=== PATIENT | female | born 1970 | race Hispanic/Latino ===

== ENCOUNTER 2016-11-12 10:33 | Emergency (ER) | payer OTHER ==
[2016-11-12 10:42] VITALS: BP 125/75
[2016-11-12 11:09] LABS: Bacteria,Urine 1+ /HPF (Negative); Bilirubin,Urine NEG (Negative); Blood,Urine MOD (Negative); Ketones,Urine TR mg/dL (Negative); Leukocyte Esterase,Urine TR (Negative); Mucus,Urine FEW /HPF; Nitrite,Urine NEG (Negative); Protein,Urine <15 mg/dL mg/dL (Negative); Urobilinogen,Urine < 2.0 mg/dL (<2.0)
--- NOTE | 2016-11-12 11:40 | XRay Report ---
CHEST 2 VIEWS INDICATION: Cough, fever. COMPARISON: 04/09/2011. FINDINGS: PA and lateral chest radiographs demonstrate normal cardiomediastinal silhouette. Clear, well-expanded lungs. Mild mid to lower thoracic spine degenerative spurring. CONCLUSION: No acute disease in the chest. Thank you for the opportunity to participate in this patient's care.
--- NOTE | 2016-11-12 12:34 | Emergency Department Report ---
Entered by ELLIOT MACIAS, acting as scribe for MARCOS RIBERA PA. <MARCOS RIBERA - Last Filed: 11/12/16 12:34> ED General Adult HPI - General Chief complaint: Upper Respiratory Infection Stated complaint: FLU SX/POSS UTI Source: patient Mode of arrival: Ambulatory Limitations: No Limitations - History of Present Illness Initial comments: 46 y/o female with no significant PMHx c/o flu-like symptoms and UTI symptoms for 3 days. Associated symptoms include back pain, dysuria, productive cough, suprapubic pain, right flank pain, nausea, vomiting, fever, and chills, but she denies headache, vaginal discharge, dyspareunia, diarrhea, and SOB. Rates right flank pain a 5/10 in severity, which she describes as sharp and aching in quality. Pain worsens with movement and alleviated by nothing. Patient notes these symptoms feels similar to her past UTIs, but worse. LMP 11/04/2016. NKDA. Onset/Timin -: days(s) Location: back (right flank), abdomen (suprapubic) Radiation: non-radiation Severity scale (0 -10): 5 (right flank pain) Quality: burning (urination) Consistency: constant Improves with: none Worsens with: movement Associated Symptoms: denies other symptoms, cough (productive), fever/chills, nausea/vomiting, other (myalgias, dysuria, right flank pain, and suprapubic tenderness, but denies dyspareunia, vaginal discharge, headache, and SOB). denies: chest pain, headaches, rash, shortness of breath Treatments Prior to Arrival: none - Related Data Previous Rx's Medication Instructions Recorded Last Taken Type Sulfamethoxazole/Trimethoprim 1 each PO BID #20 tablet 11/12/16 Unknown Rx [Bactrim DS TAB] Allergies Allergy/AdvReac Type Severity Reaction Status Date / Time No Known Allergies Allergy Unverified 11/12/16 10:38 ED Review of Systems Comment: All other systems reviewed and negative Constitutional: chills, fever Eyes: denies: eye pain, eye discharge, vision change ENT: denies: ear pain, throat pain Respiratory: cough (productive). denies: shortness of breath, wheezing Cardiovascular: denies: chest pain, palpitations Endocrine: no symptoms reported Gastrointestinal: abdominal pain (suprapubic pain), nausea, vomiting. denies: diarrhea Genitourinary: dysuria. denies: urgency, frequency, discharge, dyspareunia Musculoskeletal: back pain (right flank pain), myalgia. denies: joint swelling , arthralgia Skin: denies: rash, lesions Neurological: denies: headache, weakness, paresthesias Psychiatric: denies: anxiety, depression Hematological/Lymphatic: denies: easy bleeding, easy bruising ED Past Medical Hx - Past Medical History Previous Medical History?: Yes Additional medical history: Vaginal delivery x 2 - Surgical History Past Surgical History?: Yes Additional Surgical History: x 1 - Social History Smoking Status: Current Every Day Smoker Substance Use Type: Alcohol, Non Opiate Pain, Other - Medications Home Medications: Home Medications Medication Instructions Recorded Confirmed Last Taken Type Sulfamethoxazole/Trimethoprim 1 each PO BID #20 tablet 11/12/16 Unknown Rx [Bactrim DS TAB] ED Physical Exam - General Limitations: No Limitations General appearance: alert, in no apparent distress - Head Head exam: Present: atraumatic, normocephalic - Eye Eye exam: Present: normal appearance, EOMI Pupils: Present: normal accommodation - ENT ENT exam: Present: normal exam, mucous membranes moist - Neck Neck exam: Present: normal inspection, full ROM. Absent: tenderness, meningismus, lymphadenopathy - Respiratory Respiratory exam: Present: normal lung sounds bilaterally. Absent: respiratory distress, wheezes, rales, rhonchi, stridor - Cardiovascular Cardiovascular Exam: Present: regular rate, normal rhythm, normal heart sounds. Absent: systolic murmur, diastolic murmur, rubs, gallop - GI/Abdominal GI/Abdominal exam: Present: soft, tenderness (suprapubic tenderness present), normal bowel sounds. Absent: distended, guarding, rebound, rigid - Extremities Exam Extremities exam: Present: normal inspection, full ROM - Back Exam Back exam: Present: full ROM, CVA tenderness (R). Absent: CVA tenderness (L) - Neurological Exam Neurological exam: Present: alert, oriented X3 - Psychiatric Psychiatric exam: Present: normal affect, normal mood - Skin Skin exam: Present: warm, dry, intact. Absent: rash ED Course Vital Signs 11/12/16 10:38 Temperature 98.3 F Pulse Rate 68 Respiratory 18 Rate Blood Pressure 125/75 O2 Sat by Pulse 98 Oximetry ED Disposition Disposition: DISCHARGED TO HOME OR SELFCARE Is pt being admited?: No Condition: Stable Instructions: Urinary Tract Infection in Women (ED) Prescriptions: Sulfamethoxazole/Trimethoprim [Bactrim DS TAB] 1 each PO BID #20 tablet Referrals: PRIMARY CARE, [Primary Care Provider] - 3-5 Days <LANI WADE - Last Filed: 11/12/16 15:26> ED Medical Decision Making - Medical Decision Making case d/w Midlevel provider Marcos regarding diagnosis. Patient denies other significant UTI findings including increased RBC count. Patient however does have significant hematuria. If patient is not on her menstrual cycle than a kidney stone is also a possibility. He was instructed to recall patient to see how she is feeling and symptoms continue and if she continues to have pain with nausea and vomiting she may need a CT scan to rule out kidney stone. Marcos states he will make the call to reevaluate the pt's symptoms and discuss this possible diagnosis. This documentation as recorded by the COLLEEN escobedo JASMINE,accurately reflects the service I personally performed and the decisions made by me,MARCOS RIBERA PA.
== END 2016-11-12 11:56 | disposition home or self-care (01) ==
LOC: ED 10:33
DX: R10.9 Unspecified abdominal pain (principal); M54.9 Dorsalgia, unspecified; F17.200 Nicotine dependence, unspecified, uncomplicated
CPT/HCPCS: 71020; 81001; 81025